=== PATIENT | female | born 1985 | race Caucasian/White ===

== ENCOUNTER 2018-05-19 13:46 | Emergency (ER) | payer OTHER ==
[2018-05-19] MEDS ORDERED: HYDROcodone/Acetaminophen 10/325 mg Tablet ONE (14:58)
--- NOTE | 2018-05-19 15:13 | RAD ---
CHEST TWO VIEWS: HISTORY: Chest pain. COMPARISON: 06/02/2014 FINDINGS: Heart size and mediastinum are within normal limits. Lungs are clear of infiltrates. No significant bony findings. IMPRESSION: No active intrathoracic disease. POS: [facility]
== END 2018-05-19 15:02 | disposition home or self-care (01) ==
LOC: ERS 13:46
DX: S20.212A Contusion of left front wall of thorax, initial encounter (principal); F31.9 Bipolar disorder, unspecified; F41.9 Anxiety disorder, unspecified; F17.210 Nicotine dependence, cigarettes, uncomplicated; Z71.6 Tobacco abuse counseling; W08.XXXA Fall from other furniture, initial encounter
CPT/HCPCS: 71046; 99406

== ENCOUNTER 2018-12-23 13:39 | Emergency (ER) | payer OTHER ==
[2018-12-23 14:54] LABS: #Basophils 0.1 thou/uL (0.0-0.2); #Lymphocytes 1.1 thou/uL (1.20-3.40); #Monocytes 0.8 thou/uL (0.11-0.59); #Neutrophils 7.2 thou/uL (1.40-6.50); %Basophils 0.6 % (0.0-1.0); %Eosinophils 0.4 % (0.0-10.0); %Monocytes 8.5 % (0.0-10.0); %Neutrophils 78.6 % (42.0-75.0); Mean Corpuscular HGB CONC 34.2 g/dL (32.0-36.0); Mean Corpuscular Hemoglobin 30.6 pg (27.0-31.0); Mean Corpuscular Volume 89.4 fL (78.0-98.0); Mean Platelet Volume 6.8 fL (7.4-10.4); Platelet Count 419 thou/uL (130-400); Red Blood Cell (RBC) Count 4.57 mill/uL (4.20-5.40); White Blood Cell (WBC) Count 9.2 thou/uL (4.8-10.8)
[2018-12-23 15:15] LABS: ALT (SGPT) 14 U/L (8-55); AST (SGOT) 10 U/L (5-34); Albumin 4.6 g/dL (3.5-5.0); Alkaline Phosphatase 98 U/L (40-150); Anion Gap 13 mmol/L (10-20); BUN (Urea Nitrogen) 8 mg/dL (7.0-18.7); Bilirubin, Total 0.7 mg/dL (0.2-1.2); CRP (Inflammatory) 4.35 mg/dL (= or < 0.5); Calc. Creatinine Clearance 0 mL/min (70-130); Calcium 9.6 mg/dL (7.8-10.44); Carbon Dioxide 27 mmol/L (22-29); Chloride 97 mmol/L (98-107); Estimated GFR-MDRD 85; Globulin 3.4 g/dL (2.4-3.5); Glucose 103 mg/dL (70-105); Potassium 3.7 mmol/L (3.5-5.1); Sodium 133 mmol/L (136-145)
[2018-12-23] MEDS ORDERED: Ondansetron PF 4 MG/2 ML Vial ONE (16:35)
[2018-12-23] MEDS ORDERED: Ketorolac Tromethamine 30 MG/ML VIAL ONE (16:35)
[2018-12-23] MEDS ORDERED: Cefepime 2 GM VIAL ONE (16:35)
== END 2018-12-23 18:08 | disposition home or self-care (01) ==
LOC: ERS 13:39
DX: L03.116 Cellulitis of left lower limb (principal); F31.9 Bipolar disorder, unspecified; F41.9 Anxiety disorder, unspecified; F17.210 Nicotine dependence, cigarettes, uncomplicated
CPT/HCPCS: 36415; 80053; 85025; 85652; 86140; 96365; 96375; J0692; J1885; J2405

== ENCOUNTER 2020-11-09 18:25 | Emergency (ER) | payer SELFPAY ==
[2020-11-09] MEDS ORDERED: Boostrix 0.5 ML (Tdap) VIAL ONE (20:40)
[2020-11-09] MEDS ORDERED: Lidocaine 1% PF 5 ML VIAL ONE (21:23)
== END 2020-11-09 22:29 | disposition home or self-care (01) ==
LOC: ERS 18:25
DX: S91.311A Laceration without foreign body, right foot, initial encounter (principal); F17.210 Nicotine dependence, cigarettes, uncomplicated; W26.8XXA Contact with other sharp object(s), not elsewhere classified, initial encounter
CPT/HCPCS: 12002; 90471; 90715; 93005

== ENCOUNTER 2023-02-04 21:26 | Emergency (ER) | payer MEDICAID, OTHER, SELFPAY ==
[2023-02-04 22:22] LABS: #Basophils 0.1 thou/uL (0.0-0.2); #Eosinphils 0.1 thou/uL (0.0-0.7); #Monocytes 0.8 thou/uL (0.11-0.59); #Neutrophils 8.1 thou/uL (1.40-6.50); %Basophils 0.8 % (0.0-1.0); %Eosinophils 0.9 % (0.0-10.0); %Lymphocytes 15.8 % (21.0-51.0); %Monocytes 7.2 % (0.0-10.0); %Neutrophils 75.1 % (42.0-75.0); Hematocrit 39.1 % (36.0-47.0); Hemoglobin 12.8 g/dL (12.0-16.0); Mean Corpuscular HGB CONC 32.7 g/dL (32.0-36.0); Mean Corpuscular Volume 88.5 fl (78.0-98.0); Mean Platelet Volume 9.3 fL (7.4-10.4); Platelet Count 401 10x3/uL (130-400); RBC Distribution Width 12.6 % (11.5-14.5); Red Blood Cell (RBC) Count 4.42 mill/uL (4.20-5.40); White Blood Cell (WBC) Count 10.8 10x3/uL (4.8-10.8)
[2023-02-04 22:43] LABS: ALT (SGPT) 15 U/L (8-55); AST (SGOT) 18 U/L (5-34); Albumin 4.5 g/dL (3.5-5.0); Alkaline Phosphatase 111 U/L (40-110); Anion Gap 15 mmol/L (10-20); BUN (Urea Nitrogen) 7 mg/dL (7.0-18.7); Bilirubin, Total 0.2 mg/dL (0.2-1.2); Calc. Creatinine Clearance 0 mL/min (70-130); Calcium 9.3 mg/dL (7.8-10.44); Carbon Dioxide 23 mmol/L (22-29); Chloride 107 mmol/L (98-107); Estimated GFR 74; Globulin 2.8 g/dL (2.4-3.5); Glucose 101 mg/dL (70-105); Potassium 4.4 mmol/L (3.5-5.1); Protein, Total 7.3 g/dL (6.0-8.3); Sodium 141 mmol/L (136-145)
[2023-02-04 22:47] LABS: Troponin I Less than 0.010 ng/mL (< 0.028)
[2023-02-04] MEDS ORDERED: Ketorolac Tromethamine 30 MG/ML VIAL ONE (23:44)
== END 2023-02-04 23:52 | disposition home or self-care (01) ==
LOC: ERS 21:26
DX: R07.89 Other chest pain (principal); R06.02 Shortness of breath; F17.210 Nicotine dependence, cigarettes, uncomplicated
CPT/HCPCS: 36415; 71045; 80053; 84484; 85025; 93005; J1885

== ENCOUNTER 2023-02-23 08:29 | Emergency (ER) | payer OTHER ==
[2023-02-23] MEDS ORDERED: Ketorolac Tromethamine 30 MG/ML VIAL ONE (09:01)
== END 2023-02-23 10:47 | disposition home or self-care (01) ==
LOC: ERS 08:29
DX: S62.306A Unspecified fracture of fifth metacarpal bone, right hand, initial encounter for closed fracture (principal); F17.210 Nicotine dependence, cigarettes, uncomplicated; W18.30XA Fall on same level, unspecified, initial encounter
CPT/HCPCS: 29125; 96372; J1885